=== PATIENT | male | born 1960 | race Two or more races ===

== ENCOUNTER 2017-01-07 16:49 | Emergency (ER) | payer OTHER ==
[2017-01-07] MEDS ORDERED: Tetracaine HCl 0.5% Ophth Soln 2 ML Bottle ONE (18:12)
[2017-01-07] MEDS ORDERED: Fluorescein Opthalmic Strip ONE (18:12)
[2017-01-07] MEDS ORDERED: Gentamicin Ophth Ointment 0.3% 3.5 gm Tube ONE (18:39)
[2017-01-07] MEDS ORDERED: Ibuprofen 800 MG TAB ONE (18:48)
== END 2017-01-07 19:02 | disposition home or self-care (01) ==
LOC: BURERS 16:49
DX: S05.01XA Injury of conjunctiva and corneal abrasion without foreign body, right eye, initial encounter (principal); K21.9 Gastro-esophageal reflux disease without esophagitis; I10 Essential (primary) hypertension; X58.XXXA Exposure to other specified factors, initial encounter